=== PATIENT | male | born 1950 | race Hispanic/Latino ===

== ENCOUNTER 2019-10-19 19:57 | Emergency (ER) | payer MEDICARE ==
--- NOTE | 2019-10-19 20:06 | Emergency Department Note ---
History of Present Illnes History of Present Illness History of Present Illness This is a 68 year old male with depression and weakness per EMS. Historian: Family Member, Therapeutic Support Staff/EMS Arrival Mode: [employer] Super[employer] Required: No Onset (how long ago): day(s) (1) Severity: mild Onset quality: gradual Duration (how long): day(s) Timing of current episode: constant Progression: unchanged Chronicity: new Associated symptoms: Reports weakness Treatments prior to arrival: none Past Medical/Family History Physician Review I have reviewed the patient's past medical and family history. Any updates have been documented here. Past Medical History Recent Fever: Yes Clinical Suspicion of Infectio: Yes New/Unexplained Change in Ment: No Past Medical History: Depression Social History Smoking Cessation: Never Smoker Alcohol Use: None Any Illegal Drug Use: No Review of Systems Review of Systems Constitutional: Reports weakness EENTM: Reports no symptoms Cardiovascular: Reports no symptoms Respiratory: Reports no symptoms Gastrointestinal: Reports no symptoms Genitourinary: Reports no symptoms Musculoskeletal: Reports no symptoms Integumentary: Reports no symptoms Neurological: Reports no symptoms Psychological: Reports no symptoms Endocrine: Reports no symptoms Hematological/Lymphatic: Reports no symptoms Physical Exam Related Data Allergies: Coded Allergies: No Known Allergies (Unverified , 10/19/19) Triage Vital Signs Vital Signs Date Time Temp Pulse Resp B/P (MAP) Pulse Ox O2 Delivery O2 Flow Rate FiO2 10/19/19 20:51 102.2 92 21 130/77 100 Room Air Vital signs reviewed: Yes Physical Exam CONSTITUTIONAL Constitutional: Present well-developed, Present well-nourished HENT HENT: Present normocephalic, Present atraumatic, Present oropharynx clear/moist, Present nose normal HENT L/R: Present left ext ear normal, Present right ext ear normal EYES Eyes: Reports PERRL, Reports conjunctivae normal NECK Neck: Present ROM normal PULMONARY Pulmonary: Present effort normal, Present breath sounds normal CARDIOVASCULAR Cardiovascular: Present regular rhythm, Present heart sounds normal, Present capillary refill normal, Present normal rate GASTROINTESTINAL Abdominal: Present soft, Present nontender, Present bowel sounds normal GENITOURINARY Genitourinary: Present exam deferred SKIN Skin: Present warm, Present dry MUSCULOSKELETAL Musculoskeletal: Present ROM normal NEUROLOGICAL Neurological: Present alert, Present oriented x 3, Present no gross motor or sensory deficits PSYCHOLOGICAL Psychological: Present mood/affect normal, Present judgement normal Assessment & Plan Medical Decision Making MDM 68 yom with fever and weakness. COVID-19 and/or UTI highly suspected but testing deferred secondary to stable vital signs and high oxygen saturation on RA. Patient to be given Rx Azithromycin, Keflex and albuterol. Patient to be given resources for outpatient testing center Assessment & Plan Final Impression: (1) Fever Medications in the ED Acetaminophen 975 mg ONCE STAT PO Last administered on 10/19/19at 21:11; Admin Dose 975 MG; Start 10/19/19 at 21:01; Stop 10/19/19 at 21:58; Status DC Acetaminophen 975 mg ONCE ONCE PO Last administered on 10/19/19at 21:38; Admin Dose 975 MG; Start 10/19/19 at 21:15; Stop 10/19/19 at 21:58; Status DC NANCY PRAJAPATI DO Oct 19, 2019 20:06
[2019-10-19] MEDS ORDERED: ACETAMINOPHEN 325 MG TAB PO STA (21:01)
[2019-10-19] MEDS ORDERED: ACETAMINOPHEN 325 MG TAB PO ONE (21:15)
== END 2019-10-19 22:00 | disposition home or self-care (01) ==
LOC: ER 20:51
DX: R50.9 Fever, unspecified (principal); R53.1 Weakness
CPT/HCPCS: 99283